=== PATIENT | male | born 1975 | race Caucasian/White ===

== ENCOUNTER → 2018-11-17 | Day surgery (SDC) | payer OTHER ==
[~2018-11-17] MED LIST: ALBU0.63 NEB; ALPR0.5T PO; ATOR40TA59 PO; BUDE10.22 IH; CYCL10TA2 PO; FLUO40CA2 PO; HYDROmorphone 2 MG/ML VIAL IV PRN; IV RINGERS,LACTATED 1000ML 1,000 ML IV SCH; LIDOCAINE 1% PF 2 ML VIAL. ID PRN; LIDOCAINE 2% PF 5 ML VIAL. ONE; METF500T16 PO; MORPHINE SULFATE 2 MG/ML VIAL. IV PRN; OMEP40CA5 PO; ONDANSETRON PF 4 MG/2 ML VIAL. IV PRN; PARO40TA3 PO; PROCHLORPERAZINE 10 MG/2 ML VIAL. IV PRN; PROPOFOL 20 ML IV ONE; PROPOFOL 40 ML IV ONE; TRAN2TAB16 PO; VERA240C2 PO; fentaNYL PF VIAL 100 MCG/2 ML VIAL IV PRN
[2018-11-17 13:47] VITALS: BP 106/61
--- NOTE | 2018-11-18 14:07 | PATHOLOGY ---
[facility] Accession Number: [id number] . 01 Material submitted: . PART A: duodenum - DUODENUM BIOPSY PART B: colon - RANDOM COLON BIOPSY . 01 Clinical history: . None provided . 02 Diagnosis: A. Duodenal biopsies: - No significant pathologic abnormalities. . B. Colonic mucosa, random colon biopsies: - Mild active colitis with increased eosinophils. See comment. LBQ/11/18/2018 . 02 Comment: Sections of the duodenal biopsy reveal multiple segments of small intestine mucosa with focally prominent submucosal Basilia's glands. Where best oriented, the mucosal villi show no sprue-like changes or significant inflammatory changes. . Sections of the random colon biopsy reveal multiple segments of colonic mucosa. There is a mild increase of inflammatory cells within the lamina propria consisting of chronic inflammatory cells, a few scattered admixed neutrophils, and patchy areas of increased eosinophils primarily present within the base of the mucosa. The colonic glands appear regularly distributed and show no crypt architectural distortion. There is no increase of intraepithelial lymphocytes. There is no basal plasmacytosis or granulomas. There are scattered focally hyperplastic mucosal associated lymphoid aggregates. 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 There is no evidence of a chronic destructive colitis, lymphocytic colitis, or collagenous colitis. Correlate clinically. (JPM/db; 11/18/2018) . 02 Electronically signed: . Rico Lei MD, Pathologist NPI- [id number] . 01 Gross description: . A. Received in formalin labeled "Jack Spooler Tender, Marck, duodenum BX, rule out celiac," are 7 segments of hernandez soft tissue measuring 1.5 x 1.5 x 0.3 cm in aggregate dimensions and ranging from 0.3 to 0.5 cm in maximum dimension. The specimen is submitted entirely in cassette A1. . B. Received in formalin labeled "Jack Spooler Tender, Marck, random colon BX," are multiple segments of hernandez soft tissue measuring 1.8 x 0.6 x 0.2 cm in aggregate dimensions. The specimen is filtered and entirely submitted in cassette B1. (TSD; 11/17/2018) TOB/TOB . 02 Pathologist provided ICD-10: K52.9, R10.9, R19.7 . 02 CPT . 734188, 622047 Specimen Comment: A courtesy copy of this report has been sent to Specimen Comment: [phone], . Specimen Comment: Report sent to / DR LOERA Performed at: 01 [facility] [address] [address], [place] [id number] MD Duc Faust MD Phone: [phone] Performed at: 02 [facility] [address], [place] [id number] MD Rico Lei MD Phone: [phone]
== END ==
LOC: ENDOS 10:40
PROVIDERS: ATTEND Internal Medicine Gastroenterology
DX: K52.82 Eosinophilic colitis (principal); K29.70 Gastritis, unspecified, without bleeding; K64.0 First degree hemorrhoids; K21.9 Gastro-esophageal reflux disease without esophagitis; K44.9 Diaphragmatic hernia without obstruction or gangrene; F41.9 Anxiety disorder, unspecified; J45.909 Unspecified asthma, uncomplicated; F32.9 Major depressive disorder, single episode, unspecified; I10 Essential (primary) hypertension; E11.9 Type 2 diabetes mellitus without complications; E78.00 Pure hypercholesterolemia, unspecified; F15.90 Other stimulant use, unspecified, uncomplicated; Z88.6 Allergy status to analgesic agent; Z88.5 Allergy status to narcotic agent; Z88.0 Allergy status to penicillin; Z88.8 Allergy status to other drugs, medicaments and biological substances; Z79.84 Long term (current) use of oral hypoglycemic drugs; Z98.890 Other specified postprocedural states; Z90.49 Acquired absence of other specified parts of digestive tract
CPT/HCPCS: 43239; 45380; 88305; J2001; J2704